=== PATIENT | male | born 1930 | race African-American/Black ===

== ENCOUNTER 2017-03-25 22:39 | Inpatient (IN) | payer OTHER ==
[~2017-03-25] VITALS: Ht 195.6 cm; Wt 106.1 kg
[2017-03-26] MEDS ORDERED: SODIUM CHLORIDE 0.9% 1,000 ML IV ONE (00:16)
[2017-03-26 01:38] LABS: BASOPHILS % 0.7 % (0.0-2.0); EOSINOPHILS % 0.1 % (0.0-5.0); HEMATOCRIT. 36.4 % (42.0-52.0); HEMOGLOBIN. 12.1 g/dL (14.0-18.0); LYMPHOCYTES % 18.1 % (20.0-50.0); MEAN CORPUSCULAR HEMOGLOBIN 33.1 pg (28.0-32.0); MEAN CORPUSCULAR VOLUME 99.5 fL (80.0-94.0); MEAN PLATELET VOLUME 7.3 fl (7.4-10.4); MONOCYTES % 4.9 % (2.0-8.0); NEUTROPHILS % 76.2 % (40.0-76.0); PLATELET 293 x1000/uL (130-400); RED BLOOD CELL COUNT 3.65 mill/uL (4.7-6.1); RED CELL DISTRIBUTION WIDTH 12.8 % (11.6-14.6)
[2017-03-26 01:55] LABS: CHLORIDE 98 mEq/L (98-107); CREATINE KINASE 137 IU/L (39-308)
[2017-03-26 01:59] LABS: INR 1.1; PROTHROMBIN TIME 11.3 sec (9.4-11.6)
[2017-03-26] MEDS ORDERED: SODIUM CHLORIDE 0.9% 1,000 ML IV SCH (04:02)
[2017-03-26] MEDS ORDERED: ASPIRIN 325MG TABLET PO ONE (04:15)
[2017-03-26] MEDS ORDERED: ENALAPRIL 2.5MG/2ML VIAL 2ML IV ONE (04:15)
[2017-03-26] MEDS ORDERED: HYDRALAZINE HCL 50MG TABLET PO ONE (07:45)
[2017-03-26 14:00] VITALS: BP 147/73
[2017-03-26 15:08] LABS: CLARITY URINE CLEAR (CLEAR); COLOR URINE YELLOW (YELLOW); KETONES URINE TRACE (NEGATIVE); LEUKOCYTE ESTERASE URINE NEGATIVE (NEGATIVE); NITRITE URINE NEGATIVE (NEGATIVE); OCCULT BLOOD URINE NEGATIVE (NEGATIVE); PH URINE >=9.0 (4.5-8.0); PROTEIN URINE NEGATIVE (NEGATIVE); SPECIFIC GRAVITY URINE 1.011 (1.005-1.030)
[2017-03-26 15:29] VITALS: BP 147/73
[2017-03-26 16:53] VITALS: BP 131/64
[2017-03-26] MEDS ORDERED: LORAZEPAM 2MG/ML CPJ IV PRN (17:15)
[2017-03-26] MEDS ORDERED: LORAZEPAM 1MG TABLET PO PRN (17:15)
[2017-03-26] MEDS ORDERED: CLONIDINE 0.2MG TABLET PO PRN (17:15)
[2017-03-26] MEDS ORDERED: ACETAMINOPHEN 650MG/20.3ML UDC PO PRN (17:15)
[2017-03-26] MEDS: SODIUM CHLORIDE 0.45% 1,000 ML IV SCH (18:54)
[2017-03-26 20:00] VITALS: BP 149/71
[2017-03-26] MEDS ORDERED: KEPP500 PO (20:17)
[2017-03-26] MEDS ORDERED: LEVO100T9 PO (20:17)
[2017-03-26] MEDS ORDERED: ATOR40TA70 PO (20:17)
[2017-03-26] MEDS ORDERED: COLC0.6C3 PO (20:17)
[2017-03-26] MEDS: ATORVASTATIN CALCIUM 40MG TABLET PO SCH (23:01)
[2017-03-26] MEDS: ENOXAPARIN 40MG/0.4ML SYR SUBCUT SCH (23:02)
[2017-03-27] VITALS (7 sets, daily range): BP systolic 100–122; BP diastolic 49–69
[2017-03-27] MEDS: SODIUM CHLORIDE 0.45% 1,000 ML IV SCH (06:27)
[2017-03-27 06:41] LABS: HEMATOCRIT. 37.2 % (42.0-52.0); HEMOGLOBIN. 12.3 g/dL (14.0-18.0); MEAN CORPUSCULAR HEMOGLOBIN 33.2 pg (28.0-32.0); MEAN CORPUSCULAR VOLUME 100.8 fL (80.0-94.0); MEAN PLATELET VOLUME 7.2 fl (7.4-10.4); PLATELET 246 x1000/uL (130-400); RED BLOOD CELL COUNT 3.69 mill/uL (4.7-6.1); RED CELL DISTRIBUTION WIDTH 12.7 % (11.6-14.6)
[2017-03-27] MEDS ORDERED: LEVOTHYROXINE SODIUM 100MCG TABLET PO SCH (07:10)
[2017-03-27 07:25] LABS: CHLORIDE 99 mEq/L (98-107)
[2017-03-27] MEDS ORDERED: ASPIRIN 81MG TABLET PO SCH (09:00)
[2017-03-27] MEDS ORDERED: KEPP250 PO (13:45)
[2017-03-27 13:56] LABS: PLATELET ESTIMATE NORMAL
[2017-03-27] MEDS ORDERED: LEVETIRACETAM 250MG TABLET PO SCH (17:00)
[2017-03-27 18:05] LABS: VITAMIN B12 SERUM 1003 pg/mL (211-911)
[2017-03-27] MEDS: ATORVASTATIN CALCIUM 40MG TABLET PO SCH (22:26)
[2017-03-27] MEDS: ENOXAPARIN 40MG/0.4ML SYR SUBCUT SCH (22:28)
== END 2017-03-27 23:59 | disposition short-term general hospital (02) | DRG 640 ==
LOC: ER 22:39 → 8WST 03-26 04:03 → ENRESERV 03-26 12:40
PROVIDERS: ADMIT Internal Medicine; ATTEND Internal Medicine
DX: E86.0 Dehydration (principal); G93.41 Metabolic encephalopathy; E46 Unspecified protein-calorie malnutrition; D64.9 Anemia, unspecified; E78.5 Hyperlipidemia, unspecified; I10 Essential (primary) hypertension; I69.30 Unspecified sequelae of cerebral infarction; Z79.899 Other long term (current) drug therapy; Z68.27 Body mass index [BMI] 27.0-27.9, adult
CPT/HCPCS: 36415; 71045; 82550; 82607; 83605; 84484; 93005; 96361; 96374; 99285; J1650; J3490; J7030; J7042

== ENCOUNTER 2019-06-17 17:31 | Inpatient (IN) | payer OTHER ==
[~2019-06-17] VITALS: Ht 172.7 cm; Wt 78.9 kg
[2019-06-17] MEDS ORDERED: SODIUM CHLORIDE 0.9% 1000ML BAG (SEPSIS BOLUS) IV ONE (17:45)
[2019-06-17] MEDS ORDERED: FENTANYL CITRATE/PF 1,000 MCG in SODIUM CHLORIDE 0.9% 80 ML IV PRN (19:30)
[2019-06-17] MEDS ORDERED: MIDAZOLAM HCL 50 MG in DEXTROSE 5% WATER 40 ML IV ONE (19:30)
[2019-06-17] MEDS ORDERED: NOREPINEPHRINE 4MG/250ML PMX 250 ML IV ONE ×2 (20:25→20:30)
[2019-06-17 20:44] LABS: CHLORIDE 91 mEq/L (98-107)
[2019-06-17 20:46] LABS: HEMATOCRIT. 45.6 % (42.0-52.0); MEAN CORPUSCULAR HEMOGLOBIN 33.4 pg (28.0-32.0); MEAN CORPUSCULAR VOLUME 101.5 fL (80.0-94.0); MEAN PLATELET VOLUME 8.2 fl (7.4-10.4); PLATELET 240 x1000/uL (130-400); PROTHROMBIN TIME 10.7 sec (9.6-11.0); RED CELL DISTRIBUTION WIDTH 13.5 % (11.6-14.6)
[2019-06-17 20:49] LABS: ETHANOL BLOOD < 10 mg/dL
[2019-06-17 20:51] LABS: CLARITY URINE TURBID (CLEAR); COLOR URINE YELLOW (YELLOW); KETONES URINE NEGATIVE (NEGATIVE); LEUKOCYTE ESTERASE URINE 3+ (NEGATIVE); NITRITE URINE NEGATIVE (NEGATIVE); OCCULT BLOOD URINE 2+ (NEGATIVE); PH URINE 7.5 (4.5-8.0); PROTEIN URINE 2+ (NEGATIVE); SPECIFIC GRAVITY URINE 1.014 (1.005-1.030)
[2019-06-17 21:13] LABS: *AMPHETAMINES SCREEN URINE NEGATIVE (NEGATIVE); *BARBITURATES SCREEN URINE NEGATIVE (NEGATIVE); *COCAINE SCREEN URINE NEGATIVE (NEGATIVE); CANNABINOID URINE SCREEN NEGATIVE (NEGATIVE)
[2019-06-17 21:14] LABS: *BENZODIAZEPINES SCREEN URINE NEGATIVE (NEGATIVE); METHADONE URINE SCREEN NEGATIVE (NEGATIVE); OPIATES URINE SCREEN NEGATIVE (NEGATIVE); PHENCYCLIDINE URINE SCREEN NEGATIVE (NEGATIVE)
[2019-06-17 21:16] LABS: PLATELET ESTIMATE NORMAL
[2019-06-17] MEDS: FENTANYL CITRATE/PF 1,000 MCG in SODIUM CHLORIDE 0.9% 80 ML IV PRN (22:26)
[2019-06-17] MEDS ORDERED: CEFTRIAXONE 1 G PREMIX 50 ML IV ONE (23:15)
[2019-06-18] VITALS (55 sets, daily range): BP systolic 40–144; BP diastolic 21–80
[2019-06-18] MEDS ORDERED: ONDANSETRON HCL 4MG/2ML INJ IV PRN (00:15)
[2019-06-18] MEDS: SODIUM CHLORIDE 0.9% 1,000 ML IV SCH ×4 (00:19→20:20)
[2019-06-18] MEDS ORDERED: NOREPINEPHRINE 4MG/250ML PMX 250 ML IV ONE ×2 (01:30→05:13)
[2019-06-18 03:43] LABS: BG BASE EXCESS 5.4 mmol/L (-2.0-2.0); BG CARBOXYHEMOGLOBIN 0.6 % (0.5-1.5); BG DEOXYHEMOGLOBIN 0.2 % (0.0-5.0); BG FRACTION INSPIRED OXYGEN 100; BG METHEMOGLOBIN 0.3 % (0.0-1.5); BG OXYGEN SATURATION 99.8 % (92.0-98.5); BG OXYHEMOGLOBIN 98.9 % (94.0-97.0); BG PCO2 76.8 mmHg (35.0-45.0); BG PH 7.277 (7.350-7.450); BG PO2 460.8 mmHg (75.0-100.0); BG SAMPLE SITE RIGHT RADIAL; BG TIDAL VOLUME(mL) 450 mL; BG TOTAL HEMOGLOBIN 14.3 g/dL (12.0-18.0); BG VENT MODE VENT - A/C; BG VENT RATE 14 set
[2019-06-18 05:39] LABS: HEMATOCRIT. 42.1 % (42.0-52.0); HEMOGLOBIN. 14.1 g/dL (14.0-18.0); MEAN CORPUSCULAR HEMOGLOBIN 33.7 pg (28.0-32.0); MEAN CORPUSCULAR VOLUME 100.6 fL (80.0-94.0); PLATELET 216 x1000/uL (130-400); RED BLOOD CELL COUNT 4.18 mill/uL (4.7-6.1); RED CELL DISTRIBUTION WIDTH 13.3 % (11.6-14.6)
[2019-06-18] MEDS ORDERED: NOREPINEPHRINE 4MG/250ML PMX 250 ML IV SCH (06:00)
[2019-06-18 07:19] LABS: PLATELET ESTIMATE NORMAL
[2019-06-18] MEDS: PANTOPRAZOLE SODIUM 40 MG/VIAL IV SCH (09:00)
[2019-06-18 11:06] LABS: BG BASE EXCESS 6.5 mmol/L (-2.0-2.0); BG CARBOXYHEMOGLOBIN 0.8 % (0.5-1.5); BG DEOXYHEMOGLOBIN 1.1 % (0.0-5.0); BG FRACTION INSPIRED OXYGEN 40; BG METHEMOGLOBIN 0.2 % (0.0-1.5); BG OXYGEN SATURATION 98.9 % (92.0-98.5); BG OXYHEMOGLOBIN 97.9 % (94.0-97.0); BG PCO2 61.2 mmHg (35.0-45.0); BG PH 7.362 (7.350-7.450); BG PO2 148.7 mmHg (75.0-100.0); BG SAMPLE SITE RIGHT RADIAL; BG TIDAL VOLUME(mL) 450 mL; BG TOTAL HEMOGLOBIN 14.4 g/dL (12.0-18.0); BG VENT MODE VENT - A/C; BG VENT RATE 18 set
[2019-06-18] MEDS ORDERED: LEVETIRACETAM 500 MG in SODIUM CHLORIDE 0.9% 100 ML IV SCH (12:00)
[2019-06-18] MEDS: MIDAZOLAM HCL 50 MG in DEXTROSE 5% WATER 40 ML IV PRN (12:33)
[2019-06-18] MEDS: LEVETIRACETAM 500MG PREMIX 100 ML IV SCH ×2 (13:42→21:14)
[2019-06-18] MEDS: ENOXAPARIN 30MG/0.3ML SYR SUBCUT SCH (13:43)
[2019-06-18] MEDS: AZITHROMYCIN 500 MG TABLET NG SCH (14:33)
[2019-06-18] MEDS: CEFTRIAXONE 1 G PREMIX 50 ML IV SCH (15:47)
[2019-06-18] MEDS: FENTANYL CITRATE/PF 1,000 MCG in SODIUM CHLORIDE 0.9% 80 ML IV PRN (16:05)
[2019-06-18] MEDS: NOREPINEPHRINE 4 MG in DEXTROSE 5% WATER 250 ML IV PRN (16:50)
[2019-06-19] VITALS (94 sets, daily range): BP systolic 63–140; BP diastolic 35–88
[2019-06-19] MEDS: NOREPINEPHRINE 4 MG in DEXTROSE 5% WATER 250 ML IV PRN ×4 (02:01→23:47)
[2019-06-19] MEDS: SODIUM CHLORIDE 0.9% 1,000 ML IV SCH ×2 (03:00→14:10)
[2019-06-19] MEDS: PANTOPRAZOLE SODIUM 40 MG/VIAL IV SCH (08:44)
[2019-06-19] MEDS: LEVETIRACETAM 500MG PREMIX 100 ML IV SCH ×2 (08:44→20:52)
[2019-06-19] MEDS: AZITHROMYCIN 500 MG TABLET NG SCH (08:44)
[2019-06-19 08:48] LABS: BG BASE EXCESS 2.7 mmol/L (-2.0-2.0); BG CARBOXYHEMOGLOBIN 0.6 % (0.5-1.5); BG DEOXYHEMOGLOBIN 0.9 % (0.0-5.0); BG FRACTION INSPIRED OXYGEN 40; BG HCO3 ACT 27.2 mmol/L (22.0-26.0); BG METHEMOGLOBIN 0.2 % (0.0-1.5); BG OXYGEN SATURATION 99.1 % (92.0-98.5); BG OXYHEMOGLOBIN 98.3 % (94.0-97.0); BG PCO2 41.4 mmHg (35.0-45.0); BG PH 7.435 (7.350-7.450); BG PO2 156.5 mmHg (75.0-100.0); BG SAMPLE SITE RIGHT BRACHIAL; BG TIDAL VOLUME(mL) 450 mL; BG TOTAL HEMOGLOBIN 13.1 g/dL (12.0-18.0); BG VENT MODE VENT - A/C; BG VENT RATE 18 set
[2019-06-19] MEDS: ENOXAPARIN 30MG/0.3ML SYR SUBCUT SCH (12:18)
[2019-06-19] MEDS: CEFTRIAXONE 1 G PREMIX 50 ML IV SCH (14:10)
[2019-06-20] VITALS (77 sets, daily range): BP systolic 89–154; BP diastolic 48–86
[2019-06-20] MEDS: MIDAZOLAM HCL 50 MG in DEXTROSE 5% WATER 40 ML IV PRN (03:01)
[2019-06-20] MEDS: SODIUM CHLORIDE 0.9% 1,000 ML IV SCH ×4 (03:30→20:58)
[2019-06-20 06:18] LABS: PHOSPHORUS 1.2 mg/dL (2.5-4.9)
[2019-06-20 06:45] LABS: HEMATOCRIT. 41.2 % (42.0-52.0); HEMOGLOBIN. 13.7 g/dL (14.0-18.0); MEAN CORPUSCULAR HEMOGLOBIN 34.1 pg (28.0-32.0); MEAN CORPUSCULAR VOLUME 102.7 fL (80.0-94.0); MEAN PLATELET VOLUME 8.6 fl (7.4-10.4); PLATELET 144 x1000/uL (130-400); RED BLOOD CELL COUNT 4.02 mill/uL (4.7-6.1); RED CELL DISTRIBUTION WIDTH 13.7 % (11.6-14.6)
[2019-06-20] MEDS: NOREPINEPHRINE 4 MG in DEXTROSE 5% WATER 250 ML IV PRN ×2 (08:04→15:04)
[2019-06-20 08:07] LABS: *CREATININE RANDOM URINE 66.9 mg/dL (Not Estab.); MICROALBUMIN RANDOM URINE 91.9 ug/mL (Not Estab.)
[2019-06-20 08:54] LABS: PLATELET ESTIMATE NORMAL
[2019-06-20] MEDS: PANTOPRAZOLE SODIUM 40 MG/VIAL IV SCH (09:13)
[2019-06-20] MEDS: FOLIC ACID 1MG TABLET NG SCH (09:13)
[2019-06-20] MEDS: THIAMINE HCL 100MG TABLET NG SCH (09:14)
[2019-06-20] MEDS: AZITHROMYCIN 500 MG TABLET NG SCH (09:14)
[2019-06-20 09:41] LABS: BG BASE EXCESS 3.9 mmol/L (-2.0-2.0); BG CARBOXYHEMOGLOBIN 0.3 % (0.5-1.5); BG FRACTION INSPIRED OXYGEN 40; BG METHEMOGLOBIN 0.3 % (0.0-1.5); BG OXYHEMOGLOBIN 98.4 % (94.0-97.0); BG PCO2 46.2 mmHg (35.0-45.0); BG PH 7.416 (7.350-7.450); BG PO2 164.3 mmHg (75.0-100.0); BG SAMPLE SITE RIGHT RADIAL; BG TIDAL VOLUME(mL) 450 mL; BG TOTAL HEMOGLOBIN 11.9 g/dL (12.0-18.0); BG VENT MODE VENT - A/C; BG VENT RATE 18 set
[2019-06-20] MEDS: LEVETIRACETAM 500MG PREMIX 100 ML IV SCH ×2 (10:32→20:21)
[2019-06-20] MEDS ORDERED: POTASSIUM PHOS,M-BASIC-D-BASIC 30 MMOL in SODIUM CHLORIDE 0.9% 500 ML IV NR (12:00)
[2019-06-20] MEDS: ENOXAPARIN 30MG/0.3ML SYR SUBCUT SCH (12:23)
[2019-06-20] MEDS ORDERED: IPRATROPIUM/ALBUTEROL 0.5-3(2.5)MG/3ML NEB HHN PRN (14:15)
[2019-06-20] MEDS: CEFTRIAXONE 1 G PREMIX 50 ML IV SCH (15:20)
[2019-06-20] MEDS ORDERED: DOPAMINE 400MG/250ML PREMIX 250 ML IV PRN (15:45)
[2019-06-20] MEDS ORDERED: DOPAMINE HCL 400 MG in DEXT 5% WATER 240 ML IV PRN (16:30)
[2019-06-20] MEDS: MIDODRINE HCL 5MG TABLET PO SCH (17:13)
[2019-06-20] MEDS: IPRATROPIUM/ALBUTEROL 0.5-3(2.5)MG/3ML NEB HHN SCH ×2 (19:48→19:49)
[2019-06-20 20:41] LABS: PHOSPHORUS 2.1 mg/dL (2.5-4.9)
[2019-06-20] MEDS ORDERED: MAGNESIUM 2 G PREMIX 50 ML IV SCH (21:00)
[2019-06-21] VITALS (77 sets, daily range): BP systolic 92–147; BP diastolic 51–103
[2019-06-21] MEDS ORDERED: POTASSIUM PHOS,M-BASIC-D-BASIC 30 MMOL in DEXT 5% WATER 500 ML IV NR ×2
[2019-06-21] MEDS ORDERED: POTASSIUM PHOS,M-BASIC-D-BASIC 30 MMOL in SODIUM CHLORIDE 0.9% 500 ML IV NR ×2
[2019-06-21] MEDS: NOREPINEPHRINE 4 MG in DEXTROSE 5% WATER 250 ML IV PRN ×2 (01:08→13:27)
[2019-06-21] MEDS: IPRATROPIUM/ALBUTEROL 0.5-3(2.5)MG/3ML NEB HHN SCH ×3 (01:39→20:13)
[2019-06-21 06:17] LABS: HEMATOCRIT. 36.5 % (42.0-52.0); HEMOGLOBIN. 11.9 g/dL (14.0-18.0); MEAN CORPUSCULAR HEMOGLOBIN 33.6 pg (28.0-32.0); MEAN CORPUSCULAR VOLUME 103.1 fL (80.0-94.0); RED BLOOD CELL COUNT 3.55 mill/uL (4.7-6.1); RED CELL DISTRIBUTION WIDTH 13.7 % (11.6-14.6)
[2019-06-21 06:26] LABS: CHLORIDE 104 mEq/L (98-107)
[2019-06-21 06:33] LABS: PHOSPHORUS 2.5 mg/dL (2.5-4.9)
[2019-06-21] MEDS: SODIUM CHLORIDE 0.9% 1,000 ML IV SCH ×4 (08:05→22:19)
[2019-06-21 09:38] LABS: BG BASE EXCESS 5.4 mmol/L (-2.0-2.0); BG CARBOXYHEMOGLOBIN 0.3 % (0.5-1.5); BG DEOXYHEMOGLOBIN 6.1 % (0.0-5.0); BG FRACTION INSPIRED OXYGEN 40; BG METHEMOGLOBIN 0.1 % (0.0-1.5); BG OXYGEN SATURATION 93.9 % (92.0-98.5); BG OXYHEMOGLOBIN 93.5 % (94.0-97.0); BG PCO2 50.1 mmHg (35.0-45.0); BG PH 7.409 (7.350-7.450); BG PO2 69.6 mmHg (75.0-100.0); BG SAMPLE SITE RIGHT RADIAL; BG TIDAL VOLUME(mL) 450 mL; BG TOTAL HEMOGLOBIN 11.5 g/dL (12.0-18.0); BG VENT MODE VENT - A/C; BG VENT RATE 18 set
[2019-06-21] MEDS ORDERED: KCL 20MEQ/100ML PREMIX 100 ML IV SCH (10:00)
[2019-06-21 10:17] LABS: CHLORIDE 104 mEq/L (98-107)
[2019-06-21] MEDS: AZITHROMYCIN 500 MG TABLET NG SCH (10:29)
[2019-06-21] MEDS: LEVETIRACETAM 500MG PREMIX 100 ML IV SCH ×2 (10:29→21:30)
[2019-06-21] MEDS: PANTOPRAZOLE SODIUM 40 MG/VIAL IV SCH (10:29)
[2019-06-21] MEDS: MIDODRINE HCL 5MG TABLET PO SCH ×3 (10:30→17:44)
[2019-06-21] MEDS: FOLIC ACID 1MG TABLET NG SCH (10:30)
[2019-06-21] MEDS: THIAMINE HCL 100MG TABLET NG SCH (10:30)
[2019-06-21 10:32] LABS: PLATELET 134 x1000/uL (130-400); PLATELET ESTIMATE NORMAL
[2019-06-21 10:33] LABS: MEAN PLATELET VOLUME 9.6 fl (7.4-10.4)
[2019-06-21] MEDS: ENOXAPARIN 30MG/0.3ML SYR SUBCUT SCH (12:00)
[2019-06-21] MEDS: FENTANYL CITRATE/PF 1,000 MCG in SODIUM CHLORIDE 0.9% 80 ML IV PRN (13:33)
[2019-06-21] MEDS: CEFTRIAXONE 1 G PREMIX 50 ML IV SCH (14:49)
[2019-06-21] MEDS: MIDAZOLAM HCL 50 MG in DEXTROSE 5% WATER 40 ML IV PRN (14:50)
[2019-06-22] VITALS (63 sets, daily range): BP systolic 94–142; BP diastolic 50–78
[2019-06-22] MEDS: IPRATROPIUM/ALBUTEROL 0.5-3(2.5)MG/3ML NEB HHN SCH ×3 (00:59→14:00)
[2019-06-22 05:52] LABS: HEMATOCRIT. 30.9 % (42.0-52.0); HEMOGLOBIN. 10.2 g/dL (14.0-18.0); MEAN CORPUSCULAR HEMOGLOBIN 33.3 pg (28.0-32.0); MEAN CORPUSCULAR VOLUME 101.3 fL (80.0-94.0); MEAN PLATELET VOLUME 8.4 fl (7.4-10.4); PLATELET 170 x1000/uL (130-400); RED BLOOD CELL COUNT 3.05 mill/uL (4.7-6.1); RED CELL DISTRIBUTION WIDTH 13.6 % (11.6-14.6)
[2019-06-22 06:09] LABS: CHLORIDE 109 mEq/L (98-107)
[2019-06-22 06:17] LABS: PHOSPHORUS 1.7 mg/dL (2.5-4.9)
[2019-06-22] MEDS: SODIUM CHLORIDE 0.9% 1,000 ML IV SCH ×2 (07:15→15:33)
[2019-06-22] MEDS ORDERED: POTASSIUM CHLORIDE 20MEQ/PACKET NG SCH (09:00)
[2019-06-22] MEDS: FOLIC ACID 1MG TABLET NG SCH (09:23)
[2019-06-22] MEDS: AZITHROMYCIN 500 MG TABLET NG SCH (09:23)
[2019-06-22] MEDS: MIDODRINE HCL 5MG TABLET PO SCH ×3 (09:23→17:19)
[2019-06-22] MEDS: THIAMINE HCL 100MG TABLET NG SCH (09:23)
[2019-06-22] MEDS: LEVETIRACETAM 500MG PREMIX 100 ML IV SCH (09:23)
[2019-06-22] MEDS: PANTOPRAZOLE SODIUM 40 MG/VIAL IV SCH (09:23)
[2019-06-22 09:44] LABS: PLATELET ESTIMATE NORMAL
[2019-06-22 09:59] LABS: BG BASE EXCESS 1.5 mmol/L (-2.0-2.0); BG CARBOXYHEMOGLOBIN 0.3 % (0.5-1.5); BG DEOXYHEMOGLOBIN 0.7 % (0.0-5.0); BG FRACTION INSPIRED OXYGEN 40; BG METHEMOGLOBIN 0.2 % (0.0-1.5); BG OXYGEN SATURATION 99.3 % (92.0-98.5); BG OXYHEMOGLOBIN 98.8 % (94.0-97.0); BG PCO2 46.5 mmHg (35.0-45.0); BG PH 7.381 (7.350-7.450); BG PO2 265.1 mmHg (75.0-100.0); BG SAMPLE SITE RIGHT RADIAL; BG TIDAL VOLUME(mL) 450 mL; BG TOTAL HEMOGLOBIN 10.6 g/dL (12.0-18.0); BG VENT MODE VENT - A/C; BG VENT RATE 18 set
[2019-06-22] MEDS ORDERED: POTASSIUM PHOS,M-BASIC-D-BASIC 20 MMOL in DEXT 5% WATER 243.3333 ML IV SCH (10:00)
[2019-06-22] MEDS: MIDAZOLAM HCL 50 MG in DEXTROSE 5% WATER 40 ML IV PRN ×2 (12:38→18:55)
[2019-06-22] MEDS: ENOXAPARIN 30MG/0.3ML SYR SUBCUT SCH (12:39)
[2019-06-22] MEDS: CEFTRIAXONE 1 G PREMIX 50 ML IV SCH (15:33)
[2019-06-23] MEDS ORDERED: ENOXAPARIN 40MG/0.4ML SYR SUBCUT SCH (09:00)
== END 2019-06-22 19:25 | disposition short-term general hospital (02) | DRG 870 ==
LOC: ER 17:31 → EDBEDREQSVC 21:37 → EDBEDREQTM 21:37 → EDBEDREQ 22:30 → EDBEDREQTM 22:30 → EDBEDREQSVC 22:30 → MICUNO 22:51 → EDBEDREQTM 22:53 → EDBEDREQSVC 22:53 → EDBEDREQ 23:58 → ENRESERV 06-18 09:59 → MICUNO 06-18 11:26 → CVICU 06-20 03:15
PROVIDERS: ADMIT Internal Medicine; ATTEND Internal Medicine
PROC: 0BH17EZ Insertion of Endotracheal Airway into Trachea, Via Natural or Artificial Opening (ICD-10-PCS; principal; 2019-06-17)
PROC: 5A1955Z Respiratory Ventilation, Greater than 96 Consecutive Hours (ICD-10-PCS; 2019-06-17)
PROC: 06HY33Z Insertion of Infusion Device into Lower Vein, Percutaneous Approach (ICD-10-PCS; 2019-06-17)
PROC: B54BZZA Ultrasonography of Right Lower Extremity Veins, Guidance (ICD-10-PCS; 2019-06-17)
DX: A41.9 Sepsis, unspecified organism (principal); R65.21 Severe sepsis with septic shock; J69.0 Pneumonitis due to inhalation of food and vomit; G93.41 Metabolic encephalopathy; J96.01 Acute respiratory failure with hypoxia; J96.02 Acute respiratory failure with hypercapnia; N17.9 Acute kidney failure, unspecified; N39.0 Urinary tract infection, site not specified; E87.1 Hypo-osmolality and hyponatremia; R17 Unspecified jaundice; C61 Malignant neoplasm of prostate; Z20.828 Contact with and (suspected) exposure to other viral communicable diseases; R74.0 Nonspecific elevation of levels of transaminase and lactic acid dehydrogenase [LDH]; D72.810 Lymphocytopenia; E03.9 Hypothyroidism, unspecified; E78.5 Hyperlipidemia, unspecified; E83.39 Other disorders of phosphorus metabolism; E87.6 Hypokalemia; E87.8 Other disorders of electrolyte and fluid balance, not elsewhere classified; G40.909 Epilepsy, unspecified, not intractable, without status epilepticus; I10 Essential (primary) hypertension; R00.1 Bradycardia, unspecified; M10.9 Gout, unspecified; J44.9 Chronic obstructive pulmonary disease, unspecified; R62.7 Adult failure to thrive; Z82.49 Family history of ischemic heart disease and other diseases of the circulatory system; Z86.73 Personal history of transient ischemic attack (TIA), and cerebral infarction without residual deficits
CPT/HCPCS: 36415; 36600; 71045; 74176; 76770; 80048; 80053; 80305; 80320; 81003; 82043; 82375; 82570; 82805; 82962; 83605; 83615; 83735; 83880; 83935; 84100; 84145; 84156; 84484; 85025; 87070; 87077; 87186; 87635; 93005; 93306; 94002; 99291; C9113; J0696; J1265; J1650; J1953; J2250; J3010; J3475; J3480; J3490; J7030; J7040; J7050; J7060; G0480; U0003-CS